=== PATIENT | female | born 1965 | race Caucasian/White ===

== ENCOUNTER 2018-03-17 01:54 | Day surgery (SDC) | payer OTHER ==
[2018-03-17] VITALS (8 sets, daily range): BP systolic 94–110; BP diastolic 55–84
[~2018-03-17] VITALS: Ht 165.1 cm; Wt 60.8 kg
[~2018-03-17 01:54] MED LIST: BECL8.7A6
[2018-03-17] MEDS ORDERED: PROPOFOL EMUL(*) 10MG/ML 20 ML 20 ML ONE ×2 (08:51→13:31)
[2018-03-17] MEDS ORDERED: LIDOCAINE/SOD BICARB 8.4% SYR ID ONE (12:05)
[2018-03-17] MEDS ORDERED: NORMOSOL R SOLN(*) 1000 ML BAG 1,000 ML IV PRN (12:05)
== END 2018-03-17 15:40 | disposition home or self-care (01) ==
LOC: OR 01:54
PROVIDERS: ATTEND Family Medicine
DX: Z12.11 Encounter for screening for malignant neoplasm of colon (principal); K57.30 Diverticulosis of large intestine without perforation or abscess without bleeding
CPT/HCPCS: 00812; 45378; J2704

== ENCOUNTER 2018-09-27 21:11 | Emergency (ER) | payer OTHER ==
--- NOTE | 2018-09-27 21:30 | ER Report ---
History and Physical Time Seen By MD: 21:30 Hx. of Stated Complaint: PT WAS WALKING DOG AND DOG PULLED PT DOWN. PT COMPLAINT OF LEFT CLAVICLE PAIN. PT FEELS DIZY. HPI/ROS CHIEF COMPLAINT: fall, collar bone injury/deformity HISTORY OF PRESENT ILLNESS: This is a 52 year old female. She fell today while walking the dog. Dog pulled the leash and she fell forward. Has deformity and pain over left collar bone. Pain worsens with movement of the shoulder or neck. Normal sensation and movement in the hand and arm distally. She did hit her head, but no loss of consciousness, no headache, no blurred vision, no nausea. Allergies: Coded Allergies: No Known Drug Allergies (Unverified , 09/27/18) Home Meds Active Scripts Oxycodone Hcl/Acetaminophen (PERCOCET 5-325 MG TABLET) 1 Each Tablet, 1 EACH PO Q4H PRN for PAIN, #12 TAB 0 Refills Prov:SEVEN ARENAS MD 09/27/18 Reported Medications Beclomethasone Dipropionate 80 Mcg/Act (QVAR 80 MCG/ACT) 8.7 Gm Aer.w.adap 03/09/18 Reviewed Nurses Notes: Yes Hx Smoking: Yes (12YRS, 1PPD, QUIT 1994) Smoking Status: Former Smoker Hx Substance Use Disorder: No Hx Alcohol Use: Yes Constitutional Vital Sign - Last 24 Hours 09/27/18 09/27/18 09/27/18 09/27/18 21:15 21:21 21:26 21:30 Temp 97.7 Pulse 97 92 Resp 18 B/P (MAP) 121/82 121/82 (95) 123/82 (96) Pulse Ox 95 95 O2 Delivery Room Air 09/27/18 09/27/18 09/27/18 09/27/18 21:41 21:56 22:00 22:11 Pulse 96 96 101 B/P (MAP) 121/79 (93) Pulse Ox 95 94 93 09/27/18 09/27/18 09/27/18 09/27/18 22:26 22:30 22:41 22:56 Pulse 93 94 89 B/P (MAP) 116/75 (89) Pulse Ox 94 91 91 09/27/18 09/27/18 09/27/18 09/27/18 23:00 23:00 23:15 23:30 Pulse 89 92 92 B/P (MAP) 114/78 (90) 114/78 (90) 107/68 (81) Pulse Ox 90 91 88 Physical Exam General Appearance: Alert, no acute distress unless moving neck or shoulder because of pain. Eyes: Pupils equal and round no injection. Reactive to light. Extraocular movements are intact. ENT: Moist mucous membranes. Neck: Neck is supple and non tender. Respiratory: Chest is non tender, breathing easily. Cardiac: regular rate and rhythm, normal pulses and capillary refill. Neuro: normal sensation. Musculoskeletal: Pain and deformity mid left clavicle. Scapula non-tender. Humerus non-tender. Skin: No rashes or lesions. DIFFERENTIAL DIAGNOSIS: After history and physical exam differential diagnosis was considered for fall with apparent scapular fracture. Medical Decision Making EKG/Imaging Imaging CLAVICLE LEFT HISTORY: Fall. Clavicle pain. COMPARISON: None. TECHNIQUE: AP and AP axial views of the left clavicle. FINDINGS: There is a segmental fracture of the mid left clavicle with greater than one full shaft width superior displacement of the proximal fracture fragment compared to the distal. Segmental fragment is angulated. No acromial clavicular joint separation. The visible thorax is normal. IMPRESSION: 1. Segmental and displaced left mid clavicle fracture. Report Dictated By: Kaye Maxwell at 09/27/2018 10:54 PM ED Course/Re-evaluation ED Course Given Percocet 5/325 for pain and helping. X-ray shows the clavicle fracture, reviewed this with the patient. Sling and take home Percocet with prescription to fill tomorrow. Decision to Disposition Date: Sep 27, 2018 Decision to Disposition Time: 23:19 Depart Departure Latest Vital Signs Vital Signs Date Time Temp Pulse Resp B/P (MAP) Pulse Ox O2 Delivery O2 Flow Rate FiO2 09/27/18 23:30 92 107/68 (81) 88 09/27/18 21:15 97.7 18 Room Air Impression: Primary Impression: Clavicle fracture Condition: Improved Disposition: HOME OR SELF-CARE Referrals: SUNI SANABRIA PA-C (PCP) New Scripts Oxycodone Hcl/Acetaminophen (PERCOCET 5-325 MG TABLET) 1 Each Tablet 1 EACH PO Q4H PRN for PAIN, #12 TAB 0 Refills Prov: SEVEN ARENAS MD 09/27/18 Patient Instructions: Clavicle Fracture (ED) Additional Instructions: Follow-up with [facility] Take Percocet 5/325, one every 4 hours as needed for pain. Use the sling. Problem Qualifiers Primary Impression: Clavicle fracture Encounter type: initial encounter Clavicle location: shaft Fracture type: closed Fracture alignment: displaced Laterality: left Qualified Codes: S42.022A - Displaced fracture of shaft of left clavicle, initial encounter for closed fracture SEVEN ARENAS MD Sep 27, 2018 21:30
--- NOTE | 2018-09-27 23:00 | RADIOLOGY IMAGING REPORT ---
FACILITY: [facility] - [place] PATIENT NAME: Jessi Jama : 1965 MR: [id number] V: [id number] EXAM DATE: ORDERING PHYSICIAN: SEVEN ARENAS TECHNOLOGIST: Location: [facility] [place] Patient: Jessi Jama : 1965 Visit/Account:[id number] Date of Sevice: 09/27/2018 CLAVICLE LEFT HISTORY: Fall. Clavicle pain. COMPARISON: None. TECHNIQUE: AP and AP axial views of the left clavicle. FINDINGS: There is a segmental fracture of the mid left clavicle with greater than one full shaft wid th superior displacement of the proximal fracture fragment compared to the distal. Segmental fragment is angulated. No acromial clavicular joint separation. The visible thorax is normal. IMPRESSION: 1. Segmental and displaced left mid clavicle fracture. Report Dictated By: Kaye Maxwell at 09/27/2018 10:54 PM Report E-Signed By: Kaye Maxwell at 09/27/2018 10:55 PM WSN:[id number]
[2018-09-27] MEDS ORDERED: oxyCODONE/ACETAMIN 5/325MG TH 2 TAB/BOTTLE PO ONE (23:15)
[2018-09-27 23:30] VITALS: BP 107/68
[2018-09-27] MEDS ORDERED: OXYC-865 PO (23:31)
== END 2018-09-27 23:54 | disposition home or self-care (01) ==
LOC: ER 21:47
DX: S42.022A Displaced fracture of shaft of left clavicle, initial encounter for closed fracture (principal); W18.39XA Other fall on same level, initial encounter; Y93.K1 Activity, walking an animal
CPT/HCPCS: 73000; 99283; L3982